=== PATIENT | male | born 1970 | race Caucasian/White ===

== ENCOUNTER 2017-01-02 12:07 | Emergency (ER) | payer MEDICAID ==
[~2017-01-02] VITALS: Ht 190.5 cm; Wt 95.4 kg
[2017-01-02 12:09] VITALS: BP 144/85
[2017-01-02] MEDS ORDERED: BACITRACIN ZINC OINT 500U/GM, 0.9 GM ONE (13:18)
== END 2017-01-02 14:05 | disposition home or self-care (01) ==
LOC: ED 13:59
DX: S60.221A Contusion of right hand, initial encounter (principal); L03.116 Cellulitis of left lower limb; L03.115 Cellulitis of right lower limb; W22.01XA Walked into wall, initial encounter; Y93.89 Activity, other specified; Y99.8 Other external cause status; Y92.89 Other specified places as the place of occurrence of the external cause

== ENCOUNTER 2017-02-22 18:52 | Emergency (ER) | payer MEDICAID ==
[~2017-02-22] VITALS: Ht 190.5 cm; Wt 81.8 kg
[2017-02-22] MEDS ORDERED: HYDROcodone/APAP 5/325 TABLET PO ONE (19:00)
[2017-02-22] MEDS ORDERED: HYDROcodone/APAP 5/325 TABLET ONE (19:06)
[2017-02-22 19:14] VITALS: BP 122/76
[2017-02-22 19:32] LABS: HEMATOCRIT 46.6 % (39.2-51.8); HEMOGLOBIN 15.6 g/dL (13.7-18.0); WHITE BLOOD COUNT 6.9 x10^3/uL (3.4-10)
[2017-02-22 19:38] LABS: BLOOD UREA NITROGEN 9 mg/dL (7-18)
== END 2017-02-22 20:19 | disposition home or self-care (01) ==
LOC: ED 20:00
DX: L03.116 Cellulitis of left lower limb (principal); B37.89 Other sites of candidiasis
CPT/HCPCS: 36415; 80048; 84550; 85025; 99285

== ENCOUNTER 2017-11-14 15:56 | Emergency (ER) | payer MEDICAID ==
[~2017-11-14] VITALS: Ht 190.5 cm; Wt 91.2 kg
[2017-11-14] MEDS ORDERED: GLUCAGON 1 MG ONE (16:26)
[2017-11-14] MEDS ORDERED: GLUCAGON 1 MG IVPush ONE (16:30)
[2017-11-14] MEDS ORDERED: SODIUM CHLORIDE FLUSH 10ML SYR IVF ONE (16:30)
[2017-11-14] MEDS ORDERED: MIDAZOLAM 1 MG/ML, 2ML ONE (18:50)
[2017-11-14] MEDS ORDERED: FENTANYL PF 100 MCG/2ML ONE (18:51)
[2017-11-14] MEDS ORDERED: FENTANYL PF 100 MCG/2ML IVPush ONE (20:00)
[2017-11-14] MEDS ORDERED: MIDAZOLAM 1 MG/ML, 2ML IVPush ONE (20:00)
[2017-11-14 20:39] VITALS: BP 119/69
== END 2017-11-14 20:41 | disposition home or self-care (01) ==
LOC: ED 17:52
DX: T18.128A Food in esophagus causing other injury, initial encounter (principal); Z90.49 Acquired absence of other specified parts of digestive tract; Y93.89 Activity, other specified; Y99.8 Other external cause status; Y92.89 Other specified places as the place of occurrence of the external cause
CPT/HCPCS: 43215; 74220; 96374; 99152; 99285; J1610; J2250; J3010; 88305

== ENCOUNTER 2020-08-18 15:26 | Emergency (ER) | payer SELFPAY ==
[~2020-08-18] VITALS: Ht 193 cm; Wt 92.6 kg
[2020-08-18 15:29] VITALS: BP 122/86
[2020-08-18] MEDS ORDERED: ACETAMINOPHEN 500 MG TABLET PO ONE (16:00)
[2020-08-18] MEDS ORDERED: IBUPROFEN 800 MG TABLET PO ONE (16:00)
[2020-08-18] MEDS ORDERED: IBUPROFEN 600 MG TABLET ONE (16:15)
[2020-08-18] MEDS ORDERED: IBUPROFEN 200 MG TABLET ONE (16:15)
[2020-08-18] MEDS ORDERED: ACETAMINOPHEN 500 MG TABLET ONE (16:15)
== END 2020-08-18 16:50 | disposition home or self-care (01) ==
LOC: ED 16:43
DX: U07.1 COVID-19 (principal); B34.9 Viral infection, unspecified; Z90.49 Acquired absence of other specified parts of digestive tract
CPT/HCPCS: 99283; U0003

== ENCOUNTER 2020-12-04 11:17 | Emergency (ER) | payer SELFPAY ==
[~2020-12-04] VITALS: Ht 190.5 cm; Wt 91.9 kg
--- NOTE | 2020-12-04 11:45 | NUR ---
dr levine spoke with dr minaya. ramon called (spoke with Rebekah) for case today at [address] patrick.
--- NOTE | 2020-12-04 11:57 | NUR ---
SET UP FOR PROCEDURAL SEDATION. PROCEDURE BY JOSE AT 1300. PT PROVIDED YANKAUER SUCTION FOR EXCESSIVE SECRETIONS, EMESIS BAG. IV PLACED BY EMT STUDENT WITH ED EMT.
--- NOTE | 2020-12-04 12:22 | NUR ---
BS US BY DR LYON
[2020-12-04] MEDS ORDERED: MIDAZOLAM 1 MG/ML, 5ML ONE ×2 (12:53→12:54)
[2020-12-04] MEDS ORDERED: FENTANYL PF 100 MCG/2ML ONE ×2 (12:53)
[2020-12-04] MEDS ORDERED: PROPOFOL 10 MG/ML, 20ML ONE ×2 (12:57→13:13)
--- NOTE | 2020-12-04 13:01 | NUR ---
ROOF TRUSS MACHINE TENDER AND RN AT . DR GARCIA AND DR LYON TO ROOM FOR PROCEDURE.
--- NOTE | 2020-12-04 13:05 | NUR ---
PROPOFOL PROVIDED TO DR LYON.
--- NOTE | 2020-12-04 13:35 | NUR ---
PROCEDURE COMPLETED. PT AWAKE, DROWSY AT THIS TIME. CONTINUE TO MONITOR.
[2020-12-04] MEDS ORDERED: EPINEPHRINE SYRINGE 0.1 MG/ML, 10ML ONE (13:42)
[2020-12-04 14:47] VITALS: BP 136/72
== END 2020-12-04 14:49 | disposition home or self-care (01) ==
LOC: ED 12:05
DX: T18.128A Food in esophagus causing other injury, initial encounter (principal); K92.2 Gastrointestinal hemorrhage, unspecified; Z90.49 Acquired absence of other specified parts of digestive tract; X58.XXXA Exposure to other specified factors, initial encounter; Y93.89 Activity, other specified; Y92.89 Other specified places as the place of occurrence of the external cause; Y99.8 Other external cause status
CPT/HCPCS: 43247; 99285; J2250; J3010

== ENCOUNTER 2021-03-18 01:43 | Emergency (ER) | payer OTHER ==
[~2021-03-18] VITALS: Ht 193 cm; Wt 94.0 kg
[2021-03-18] MEDS ORDERED: PROPOFOL 10 MG/ML, 20ML ONE (03:07)
--- NOTE | 2021-03-18 03:10 | NUR ---
PATIENT PROCEDURAL SEDATION STARTED, TIME OUT AT 0315. SEE PROCEDURAL SEDATION PACKET FOR FURTHER CHARTING.
--- NOTE | 2021-03-18 03:19 | NUR ---
PROCEDURAL SEDATION COMPLETED. PATIENT TOLERATED WELL. NO NOTED NEEDS AT THIS TIME. WILL SIT WITH PATIENT UNTIL FULL RECOVERY. SEE SEDATION PACKET FOR FURTHER CHARTING.
[2021-03-18 03:20] VITALS: BP 148/94
--- NOTE | 2021-03-18 04:13 | NUR ---
SEE PAPER CHART FOR INTRAPROCEDURAL NOTES AND VITAL SIGNS.
== END 2021-03-18 04:13 | disposition home or self-care (01) ==
LOC: ED 03:40
DX: T18.128A Food in esophagus causing other injury, initial encounter (principal); X58.XXXA Exposure to other specified factors, initial encounter; Y93.89 Activity, other specified; Y92.89 Other specified places as the place of occurrence of the external cause; Y99.8 Other external cause status
CPT/HCPCS: 99151; 99285